=== PATIENT | male | born 2000 | race American Indian/Alaskan Native ===

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

== ENCOUNTER 2024-01-21 19:50 | Emergency (ER) | payer OTHER ==
[2024-01-21] MEDS: Oxymetazoline 0.05% Nasal Spray 30 ML Bottle NAS ONE (21:12)
[2024-01-21 21:23] VITALS: BP 135/84; PULSE 70
== END 2024-01-21 21:17 | disposition home or self-care (01) ==
LOC: DL.ED 19:50
DX: R04.0 Epistaxis (principal)
CPT/HCPCS: 99282; 99283; A9270-GY